=== PATIENT | female | born 1960 | race Caucasian/White ===

== ENCOUNTER 2019-07-25 09:37 | Inpatient (IN) | payer OTHER ==
[~2019-07-25] VITALS: Ht 160 cm; Wt 121.1 kg
[~2019-07-25 09:37] MED LIST: ASPIR 8181 MG; COZAAR100 MG; MEDROLPACK PO; MUCINEX1200 MG PO; VENTOLIN HFA18 GM IH; ZOLOFT50 MG
--- NOTE | 2019-07-25 09:56 | NUR ---
PACIENTE ALERTA Y ORIENTADA EN SUSAN FARHAN ESFERAS, REFIERE DOLOR AL ORINAR Y DOLOR EN LADO LT DEL COSTADO DESDE CAITLIN.
--- NOTE | 2019-07-25 11:26 | NUR ---
PTE ES EVALUADA POR DR CONNOR. SE ORIENTA A PACIENTE SOBRE ORDENES MEDICAS, REFIERE COMPRENDER. SE COLECTAN MUESTRAS DE LABORATORIO ORDENADAS Y ADMINSITRA MEDICAMENTO BAJO MEDIDAS ASEPTICAS. PENDIENTE A RESULTADOS DE LABORATORIO Y LECTURA DE CT SCAN PARA RE-EVALUACION MEDICA.
--- NOTE | 2019-07-25 13:47 | NUR ---
PACIENTE ES RE-EVALUADA POR DR CONNOR. SE ORIENTA A PACIENTE SOBRE ORDENES MEDICAS, REFIERE COMPRENDER. SE COLECTAN MUESTRAS DE LABORATORIO ORDENADAS. SE CANALIZA PACIENTE Y COLOCA IV FLUID ORDENADO; CANALIZACION JAE DE EDEMA Y/O ENROJECIMIENTO. PACIENTE EN ESPERA DE CONSULTA CON DR SAM DE JESUS.
--- NOTE | 2019-07-25 15:26 | NUR ---
SE RECIBE PTE ALERTA Y ORIENTADA X3 EN CELINA CON BARANDAS ELEVADAS AL MOMENTO. PTE SE OBSERVA CON 0.9NSS BAJANDO A 80ML/HR. PTE SE ORIENTA SOBRE ORDEN NPO. PTE EN ESPEREA DE CONSULTA CON MEDICINA INTERNA. PTE SE CONTINUA MONITORIANDO POR CAMBIOS.
== END 2019-07-29 13:57 | disposition home or self-care (01) | DRG 392 ==
LOC: ER 09:37 → MEDJ 16:31 → SEC-K 16:31 → MEDJ 17:26
PROVIDERS: ADMIT Internal Medicine
PROC: BW21ZZZ Computerized Tomography (CT Scan) of Abdomen and Pelvis (ICD-10-PCS; principal; 2019-07-25)
DX: K57.32 Diverticulitis of large intestine without perforation or abscess without bleeding (principal); E86.0 Dehydration; N21.0 Calculus in bladder; N20.0 Calculus of kidney; K43.9 Ventral hernia without obstruction or gangrene; J45.20 Mild intermittent asthma, uncomplicated; K76.0 Fatty (change of) liver, not elsewhere classified

== ENCOUNTER 2019-12-21 21:47 | Emergency (ER) | payer OTHER ==
[~2019-12-21] VITALS: Ht 160 cm; Wt 125.2 kg
[2019-12-21] MEDS ORDERED: RELAFEN DS1000 MG (21:56)
[2019-12-22] MEDS ORDERED: DICLOFENAC SODI75 MG PO (02:17)
== END 2019-12-22 02:27 | disposition home or self-care (01) ==
LOC: ER 21:47
DX: M62.838 Other muscle spasm (principal); M54.2 Cervicalgia

== ENCOUNTER 2020-01-23 18:44 | Inpatient (IN) | payer OTHER ==
[~2020-01-23] VITALS: Ht 160 cm; Wt 123.4 kg
[~2020-01-23 18:44] MED LIST changes: +DICLOFENAC SODI75 MG PO; +RELAFEN DS1000 MG
[2020-01-23] MEDS ORDERED: COZAAR25 MG (19:29)
== END 2020-02-08 14:37 | disposition home or self-care (01) | DRG 392 ==
LOC: ER 18:44 → SURH 01-24 08:07 → SEC-K 01-24 08:07 → SURH 01-24 10:25
PROVIDERS: ADMIT Surgery
PROC: BW21ZZZ Computerized Tomography (CT Scan) of Abdomen and Pelvis (ICD-10-PCS; 2020-01-24)
PROC: 05HY33Z Insertion of Infusion Device into Upper Vein, Percutaneous Approach (ICD-10-PCS; 2020-01-24)
PROC: BW21YZZ Computerized Tomography (CT Scan) of Abdomen and Pelvis using Other Contrast (ICD-10-PCS; 2020-01-28)
PROC: 0W9H30Z Drainage of Retroperitoneum with Drainage Device, Percutaneous Approach (ICD-10-PCS; principal; 2020-01-29)
PROC: 3E0336Z Introduction of Nutritional Substance into Peripheral Vein, Percutaneous Approach (ICD-10-PCS; 2020-01-30)
DX: K57.20 Diverticulitis of large intestine with perforation and abscess without bleeding (principal); N20.1 Calculus of ureter; E66.01 Morbid (severe) obesity due to excess calories; I10 Essential (primary) hypertension; R73.9 Hyperglycemia, unspecified

== ENCOUNTER 2020-05-11 09:27 | Outpatient (CLI) | payer OTHER ==
[~2020-05-11 09:27] MED LIST changes: +COZAAR25 MG
== END 2020-05-11 09:30 | disposition home or self-care (01) ==
LOC: TOM 09:27
DX: N20.0 Calculus of kidney (principal)

== ENCOUNTER 2020-07-03 10:55 | Day surgery (SDC) | payer OTHER | END 2020-07-03 16:24 | disposition home or self-care (01) | LOC: AMB-ENDOS 10:55 → ADM 13:15 → AMB-ENDOS 16:24 | PROVIDERS: ATTEND Colon & Rectal Surgery | DX: K63.5 Polyp of colon (principal); K64.1 Second degree hemorrhoids; Z20.828 Contact with and (suspected) exposure to other viral communicable diseases ==

== ENCOUNTER 2021-06-27 12:51 | Emergency (ER) | payer OTHER ==
[~2021-06-27] VITALS: Ht 160 cm; Wt 122.5 kg
[2021-06-27] MEDS ORDERED: SERTRALINE HCL50 MG PO (13:09)
[2021-06-27] MEDS ORDERED: OMEPRAZOLE20 MG PO (13:09)
[2021-06-27] MEDS ORDERED: HYDROCHLOROTHIA25 MG PO (13:10)
[2021-06-27] MEDS ORDERED: METFORMIN HCL500 M4 PO (13:10)
[2021-06-27] MEDS ORDERED: CYCLOBENZAPRINE10 MG PO (13:10)
[2021-06-27] MEDS ORDERED: AMLODIPINE BESYL5 MG PO (13:10)
== END 2021-06-27 17:46 | disposition home or self-care (01) ==
LOC: ER 12:51
DX: S80.01XA Contusion of right knee, initial encounter (principal); S40.011A Contusion of right shoulder, initial encounter; W18.39XA Other fall on same level, initial encounter; Y93.89 Activity, other specified; Y92.481 Parking lot as the place of occurrence of the external cause; Y99.8 Other external cause status

== ENCOUNTER 2022-12-21 14:57 | Inpatient (IN) | payer OTHER ==
[~2022-12-21] VITALS: Ht 152.4 cm; Wt 125.6 kg
[~2022-12-21 14:57] MED LIST changes: +AMLODIPINE BESYL5 MG PO; +CYCLOBENZAPRINE10 MG PO; +HYDROCHLOROTHIA25 MG PO; +METFORMIN HCL500 M4 PO; +OMEPRAZOLE20 MG PO; +SERTRALINE HCL50 MG PO
--- NOTE | 2022-12-21 15:22 | NUR ---
PTE ALERTA Y ORIENTADA X3 REFIERE TENER DOLOR EN LADO IZQUIEDO DEL COSTADO. EN ADDICION REFIERE TENER DIARREAS DESDE CAITLIN POR LA NOCHE Y EL NELDA DE HOY A PRESENTADO 7 EVACUACIONES LIQUIDAS.
--- NOTE | 2022-12-21 17:38 | NUR ---
SE EDUCA A PTE SOBRE TX MEDICO ESTA REFIERE ENTENDER. SE HERMINIA MUESTRAS DE LABORATORIO UTILIZANDO MEDIDAS ASEPTICAS. SE COLOCA H/L A PTE Y SE ADMINISTRAN MEDICAMENTOS LOS CUALES TOLERA.
== END 2022-12-28 22:52 | disposition home or self-care (01) | DRG 392 ==
LOC: ER 14:57 → MEDJ 20:25 → MEDI 12-28 10:07
PROVIDERS: ADMIT Internal Medicine; ATTEND Internal Medicine
PROC: BW21ZZZ Computerized Tomography (CT Scan) of Abdomen and Pelvis (ICD-10-PCS; principal; 2022-12-21)
DX: K57.32 Diverticulitis of large intestine without perforation or abscess without bleeding (principal); K21.9 Gastro-esophageal reflux disease without esophagitis; K43.9 Ventral hernia without obstruction or gangrene; N20.0 Calculus of kidney; I10 Essential (primary) hypertension; E66.01 Morbid (severe) obesity due to excess calories; E11.9 Type 2 diabetes mellitus without complications; Z79.4 Long term (current) use of insulin; Z20.822 Contact with and (suspected) exposure to COVID-19

== ENCOUNTER 2024-01-14 14:33 | Emergency (ER) | payer OTHER ==
[~2024-01-14] VITALS: Ht 157.5 cm; Wt 118.8 kg
[2024-01-14] MEDS ORDERED: ZITHROMAX200 MG PO (14:47)
[2024-01-14] MEDS ORDERED: 0.9 % SODIUM CHLORIDE 1,000 ML IV STA (15:20)
[2024-01-14 15:44] LABS: HEMATOCRIT 41.5 % (36.0-45.00); HEMOGLOBIN 13.9 g/dL (12.0-15.00); MEAN CELL VOLUME 83.1 fL (80.00-100.00); MEAN CORPUSCULAR HEMOGLOBIN 27.8 pg (27.00-32.0); MEAN CORPUSCULAR HGB CONC 33.5 g/dl (32.0-36.0); PLATELET COUNT 260 K/uL (150-450); RED BLOOD COUNT 4.99 M/uL (4.00-6.00); RED CELL DISTRIBUTION WIDTH 15.1 % (11.5-14.5)
[2024-01-14 16:19] LABS: INR 1.14; PARTIAL THROMBOPLASTIN TIME 33.9 SECONDS (22.0-34.0); PROTHROMBIN TIME 11.9 SECONDS (9.0-11.5)
[2024-01-14 16:30] LABS: CALCIUM 9.3 mg/dL (8.5-10.1); CREATININE SERUM 0.69 mg/dL (0.55-1.02); GFR 86.49; POTASSIUM 3.58 mEq/L (3.5-5.1)
[2024-01-14 17:06] LABS: PH,URINE 6.5 (5.0-8.0); URINE APPEARANCE Clear; URINE BILIRRUBIN Negative (NEGATIVE); URINE BLOOD Negative; URINE COLOR Yellow; URINE GLUCOSE Negative (NEGATIVE); URINE LEUKOCYTE Trace; URINE NITRATE Negative; URINE PROTEIN Negative (NEGATIVE)
[2024-01-14 17:09] LABS: URINE BACTERIA 2631.9 uL (0.0-1933); URINE EPITHELIAL CELLS 47.7 uL (0.0-38.8); URINE WBC 22.2 uL (0.0-23.2)
[2024-01-14] MEDS ORDERED: CIPROFLOXACIN IN 5 % DEXTROSE 400 MG/200 ML PIGGYBAG IV ONE (20:15)
== END 2024-01-14 22:16 | disposition home or self-care (01) ==
LOC: ER 14:33
PROVIDERS: General Practice
DX: K57.32 Diverticulitis of large intestine without perforation or abscess without bleeding (principal); K76.0 Fatty (change of) liver, not elsewhere classified; N20.0 Calculus of kidney; K43.9 Ventral hernia without obstruction or gangrene; E11.9 Type 2 diabetes mellitus without complications; Z79.84 Long term (current) use of oral hypoglycemic drugs; I10 Essential (primary) hypertension; Z91.013 Allergy to seafood; Z88.8 Allergy status to other drugs, medicaments and biological substances; Z85.038 Personal history of other malignant neoplasm of large intestine
CPT/HCPCS: 36415; 74176; 96365; 96366; 99284; J0744; J3490

== ENCOUNTER 2024-07-23 05:06 | Emergency (ER) | payer OTHER ==
[~2024-07-23] VITALS: Ht 152.4 cm; Wt 119.3 kg
[~2024-07-23 05:06] MED LIST changes: +ZITHROMAX200 MG PO
[2024-07-23] MEDS ORDERED: RINGERS SOLUTION,LACTATED 1,000 ML IV STA (05:25)
[2024-07-23] MEDS ORDERED: MEPERIDINE HCL/PF 50 MG/ML VIAL IM STA (05:26)
[2024-07-23] MEDS ORDERED: HYOSCYAMINE SULFATE 0.125 MG TAB.SUBL SL STA (05:26)
[2024-07-23] MEDS ORDERED: KETOROLAC TROMETHAMINE 30 MG VIAL IV STA (05:26)
[2024-07-23] MEDS ORDERED: PROMETHAZINE HCL 50 MG/ML AMPUL IM STA (05:27)
[2024-07-23] MEDS ORDERED: PROMETHAZINE HCL 50 MG/ML AMPUL IM ONE (05:31)
[2024-07-23] MEDS ORDERED: KETOROLAC TROMETHAMINE 30 MG VIAL ONE (05:31)
[2024-07-23] MEDS ORDERED: HYOSCYAMINE SULFATE 0.125 MG TAB.SUBL ONE (05:31)
[2024-07-23 06:53] LABS: HEMATOCRIT 44.7 % (36.0-45.00); HEMOGLOBIN 14.9 g/dL (12.0-15.00); MEAN CELL VOLUME 83.5 fL (80.00-100.00); MEAN CORPUSCULAR HEMOGLOBIN 27.8 pg (27.00-32.0); MEAN CORPUSCULAR HGB CONC 33.3 g/dl (32.0-36.0); PLATELET COUNT 278 K/uL (150-450); RED BLOOD COUNT 5.35 M/uL (4.00-6.00); RED CELL DISTRIBUTION WIDTH 15.2 % (11.5-14.5)
[2024-07-23] MEDS ORDERED: OxyCODONE HCL/APAP UD (PERCOCET) PO STA (07:55)
[2024-07-23 07:59] LABS: URINE APPEARANCE Clear; URINE BILIRRUBIN Negative (NEGATIVE); URINE BLOOD Small; URINE COLOR Yellow; URINE GLUCOSE Negative (NEGATIVE); URINE KETONE Negative (NEGATIVE); URINE LEUKOCYTE Trace; URINE NITRATE Negative; URINE PROTEIN Trace (NEGATIVE); URINE UROBILINOGEN 0.2 E.U./dl
[2024-07-23 08:03] LABS: URINE BACTERIA 755.9 uL (0.0-1933); URINE EPITHELIAL CELLS 19.3 uL (0.0-38.8); URINE RBC 55.1 uL (0.0-20.8); URINE WBC 48.2 uL (0.0-23.2)
[2024-07-23 08:12] LABS: CALCIUM 9.4 mg/dL (8.5-10.1); CREATININE SERUM 0.93 mg/dL (0.55-1.02); GFR 61.09; POTASSIUM 4.29 mEq/L (3.5-5.1)
[2024-07-23] MEDS ORDERED: CEFTRIAXONE SODIUM 1,000 MG VIAL ONE (08:44)
[2024-07-23] MEDS ORDERED: CEFTRIAXONE SODIUM 2,000 MG VIAL IV ONE (08:45)
[2024-07-23] MEDS ORDERED: CEFTRIAXONE SODIUM 1,000 MG VIAL IV ONE (08:45)
== END 2024-07-23 09:21 | disposition home or self-care (01) ==
LOC: ER 05:07
DX: N20.1 Calculus of ureter (principal); R10.9 Unspecified abdominal pain; Z87.442 Personal history of urinary calculi; Z91.013 Allergy to seafood; Z88.8 Allergy status to other drugs, medicaments and biological substances; N20.0 Calculus of kidney; K57.30 Diverticulosis of large intestine without perforation or abscess without bleeding
CPT/HCPCS: 36415; 74176; 96365; 96372; 99284; J0696; J1885; J2250; J3490

== ENCOUNTER 2024-10-29 11:48 | Inpatient (IN) | payer OTHER ==
[~2024-10-29] VITALS: Ht 152.4 cm; Wt 117.9 kg
--- NOTE | 2024-10-29 12:22 | NUR ---
SE RECIBE PTE ALERTA Y ORIENTADA X3 EN AMBULANCIA EN COMPANAI DE PARAMEDICOS Y FAMILIAR. LA MISMA REIFERE DEOLOR ABDOMINAL Y VOMITOS DESDE LAS 5AM. SE NOTIFICA B/P 170/[address] CEBALLOS. SE MIDEN S/V Y SE UBICA.
[2024-10-29] MEDS ORDERED: FAMOtidine 10 MG/ML (4ML VIAL) IV ONE (13:00)
[2024-10-29] MEDS ORDERED: 0.9 % SODIUM CHLORIDE 1,000 ML IV ONE (13:00)
[2024-10-29] MEDS ORDERED: ONDANSETRON HCL 2 MG/ML VIAL IV ONE (13:00)
[2024-10-29] MEDS ORDERED: CEFTRIAXONE SODIUM 1,000 MG VIAL IV ONE (13:00)
[2024-10-29] MEDS ORDERED: TAMSULOSIN HCL 0.4 MG CAP PO ONE (13:15)
[2024-10-29] MEDS ORDERED: METHYLPREDNISOLONE SOD SUCC 40 MG VIAL IV ONE (14:15)
[2024-10-29] MEDS ORDERED: DIPHENHYDRAMINE HCL 50 MG/ML VIAL 1ML IV ONE (14:15)
--- NOTE | 2024-10-29 14:17 | NUR ---
SE ORIENTA A PACIENTE SOBRE TX MEDICO, REFIERE ENTENDER. SE REALIZAN MUESTRAS DE LABORATORIO BAJO MEDIDAS ASEPTICAS. SE ADMINISTRAN MEDICAMENTOS CUCO ORDEN MEDICA. SE COORDINA CT. PACIENTE MANEJADA POR .
[2024-10-29 14:55] LABS: ALBUMIN 3.6 gm/dL (3.4-5.0); BILIRUBIN TOTAL 0.88 mg/dL (0.3-1.2); CALCIUM 9.3 mg/dL (8.5-10.1); CREATININE SERUM 1.01 mg/dL (0.55-1.02); GFR 55.54; GLOBULINA 4.1 G/DL (2.4-3.5); POTASSIUM 4.9 mEq/L (3.5-5.1); TOTAL PROTEIN 7.7 gm/dL (6.4-8.2)
[2024-10-29 14:58] LABS: HEMATOCRIT 43.6 % (36.0-45.00); HEMOGLOBIN 14.7 g/dL (12.0-15.00); MEAN CELL VOLUME 81.5 fL (80.00-100.00); MEAN CORPUSCULAR HEMOGLOBIN 27.4 pg (27.00-32.0); MEAN CORPUSCULAR HGB CONC 33.7 g/dl (32.0-36.0); PLATELET COUNT 248 K/uL (150-450); RED BLOOD COUNT 5.35 M/uL (4.00-6.00); RED CELL DISTRIBUTION WIDTH 14.9 % (11.5-14.5)
[2024-10-29 15:24] LABS: PH,URINE 5.5 (5.0-8.0); URINE APPEARANCE Clear; URINE BILIRRUBIN Negative (NEGATIVE); URINE BLOOD NHT; URINE COLOR Yellow; URINE GLUCOSE Negative (NEGATIVE); URINE KETONE Negative (NEGATIVE); URINE LEUKOCYTE Small; URINE NITRATE Positive; URINE PROTEIN Trace (NEGATIVE); URINE UROBILINOGEN 0.2 E.U./dl
[2024-10-29 15:29] LABS: URINE EPITHELIAL CELLS 46.9 uL (0.0-38.8); URINE WBC 82.8 uL (0.0-23.2)
[2024-10-29 15:38] LABS: URINE BACTERIA > 9821.5 uL (0.0-1933); URINE CAST 0.45 uL (0.0-1.40)
[2024-10-29] MEDS ORDERED: CEFTRIAXONE SODIUM 2,000 MG in 0.9 % SODIUM CHLORIDE 100 ML IV SCH (20:50)
[2024-10-29] MEDS ORDERED: KETOROLAC TROMETHAMINE 15 MG VIAL IU SCH (21:00)
[2024-10-29] MEDS ORDERED: ACETAMINOPHEN 500 MG GEL..CAP PO PRN (21:00)
[2024-10-29] MEDS ORDERED: INSULIN LISPRO 1,000 UNIT/10 ML UNITS SUBCUTANEO PRN (21:00)
[2024-10-29] MEDS ORDERED: DEXTROSE 50 % IN WATER 0.5 G/ML DISP.SYRIN IV PRN (21:00)
[2024-10-29] MEDS ORDERED: ONDANSETRON HCL 4 MG in 0.9 % SODIUM CHLORIDE 50 ML IV PRN (21:00)
[2024-10-29] MEDS ORDERED: 0.9 % SODIUM CHLORIDE 1,000 ML IV SCH (21:00)
[2024-10-30 00:42] LABS: INR 1.47; PARTIAL THROMBOPLASTIN TIME 35.3 SECONDS (22.0-34.0)
[2024-10-30 01:08] LABS: PROTHROMBIN TIME 15.6 SECONDS (9.0-11.5)
[2024-10-30 06:29] VITALS: BP 97/56; O2SAT 96
[2024-10-30 08:05] VITALS: BP 101/59; O2SAT 88
[2024-10-30] MEDS ORDERED: AMLODIPINE BESYLATE 5 MG TABLET PO SCH (09:00)
[2024-10-30] MEDS ORDERED: LOSARTAN POTASSIUM 25 MG TABLET PO SCH (09:00)
[2024-10-30] MEDS ORDERED: TAMSULOSIN HCL 0.4 MG CAP PO SCH (09:00)
[2024-10-30] MEDS ORDERED: SERTRALINE HCL 50 MG TABLET PO SCH (09:00)
[2024-10-30] MEDS ORDERED: KETOROLAC TROMETHAMINE 30 MG VIAL IV SCH (13:00)
[2024-10-30 16:00] VITALS: BP 89/50; O2SAT 91
[2024-10-30] MEDS ORDERED: AMIKACIN SULFATE 250 MG/ML - 1GM VIAL IV SCH (17:00)
[2024-10-30] MEDS ORDERED: ORPHENADRINE CITRATE 30 MG/ML AMPUL IV SCH (22:53)
[2024-10-30] MEDS ORDERED: 0.9 % SODIUM CHLORIDE 500 ML IV SCH (23:15)
[2024-10-31 03:30] VITALS: BP 100/58; O2SAT 95
[2024-10-31 03:39] LABS: HEMATOCRIT 38.1 % (36.0-45.00); HEMOGLOBIN 12.8 g/dL (12.0-15.00); MEAN CELL VOLUME 81.8 fL (80.00-100.00); MEAN CORPUSCULAR HEMOGLOBIN 27.4 pg (27.00-32.0); MEAN CORPUSCULAR HGB CONC 33.5 g/dl (32.0-36.0); RED BLOOD COUNT 4.66 M/uL (4.00-6.00); RED CELL DISTRIBUTION WIDTH 15.8 % (11.5-14.5)
[2024-10-31 04:04] LABS: ALBUMIN 2.6 gm/dL (3.4-5.0); BILIRUBIN TOTAL 0.38 mg/dL (0.3-1.2); CALCIUM 7.7 mg/dL (8.5-10.1); GLOBULINA 3.2 G/DL (2.4-3.5); PHOSPHOROUS 6.5 mg/dL (2.5-4.9); POTASSIUM 4.52 mEq/L (3.5-5.1); TOTAL PROTEIN 5.8 gm/dL (6.4-8.2)
[2024-10-31 04:54] LABS: C-REACTIVE PROTEIN 36.3 MG/DL (0.00-0.29); GFR 11.51
[2024-10-31 05:14] LABS: PLATELET COUNT 84 K/uL (150-450)
[2024-10-31 06:37] LABS: CREATININE SERUM 3.95 mg/dL (0.55-1.02)
[2024-10-31 06:39] LABS: MAGNESIUM 1.3 mg/dL (1.8-2.4)
[2024-10-31] MEDS ORDERED: MAGNESIUM SULFATE IN WATER 2 GM/50 ML PIGGYBAG IV NR (11:00)
[2024-10-31 12:00] VITALS: BP 126/63; O2SAT 97
[2024-10-31] MEDS ORDERED: MEROPENEM 500 MG/VIAL VIAL IV SCH (12:11)
[2024-10-31 14:52] LABS: URINE APPEARANCE Turbid; URINE BILIRRUBIN Small (NEGATIVE); URINE BLOOD Large; URINE COLOR Dark Yellow; URINE KETONE 15 (NEGATIVE); URINE LEUKOCYTE Large; URINE NITRATE Negative; URINE UROBILINOGEN 0.2 E.U./dl
[2024-10-31 14:56] LABS: URINE BACTERIA 6807.8 uL (0.0-1933); URINE EPITHELIAL CELLS 80.1 uL (0.0-38.8); URINE RBC 32.2 uL (0.0-20.8)
[2024-10-31] MEDS ORDERED: DEXTROSE 5 % IN WATER 1,000 ML IV SCH (15:30)
[2024-10-31 15:41] LABS: URINE CAST > 21.83 uL (0.0-1.40); URINE GLUCOSE 100 MG/DL (NEGATIVE); URINE PROTEIN 300 (NEGATIVE); URINE WBC > 5548.3 uL (0.0-23.2)
[2024-10-31 16:21] VITALS: BP 90/70; O2SAT 95
[2024-10-31 20:11] LABS: ABG PH 7.292 (7.35-7.45); ABG PO2 95.9 mmHg (80-100); ABG pCO2 38.5 mmHg (35-45); SaO2 96.1 %
[2024-10-31 20:12] LABS: BASE EXCESS -7.7 mmol/l; BICARBONATE 18.2 mmol/l (23-25); Tco2 19.3 mmol/l; allen test SATISFACTORY; o2 36 %; puncture site RADIAL RIGHT
[2024-10-31] MEDS ORDERED: CITRIC ACID/SODIUM CITRATE 30 ML BLIST.PACK PO SCH (21:00)
[2024-11-01 00:16] VITALS: BP 121/67; O2SAT 95
[2024-11-01] MEDS ORDERED: SODIUM CHLORIDE 0.45 % 1,000 ML IV SCH (00:30)
[2024-11-01 06:35] LABS: HEMATOCRIT 36.5 % (36.0-45.00); HEMOGLOBIN 11.7 g/dL (12.0-15.00); MEAN CELL VOLUME 83.7 fL (80.00-100.00); MEAN CORPUSCULAR HEMOGLOBIN 26.9 pg (27.00-32.0); MEAN CORPUSCULAR HGB CONC 32.2 g/dl (32.0-36.0); RED BLOOD COUNT 4.36 M/uL (4.00-6.00); RED CELL DISTRIBUTION WIDTH 16.2 % (11.5-14.5)
[2024-11-01 07:22] LABS: ALBUMIN 2.5 gm/dL (3.4-5.0); BILIRUBIN TOTAL 0.35 mg/dL (0.3-1.2); CALCIUM 7.4 mg/dL (8.5-10.1); CREATININE SERUM 2.47 mg/dL (0.55-1.02); GFR 19.79; GLOBULINA 3.4 G/DL (2.4-3.5); MAGNESIUM 2.4 mg/dL (1.8-2.4); PHOSPHOROUS 5.9 mg/dL (2.5-4.9); TOTAL PROTEIN 5.9 gm/dL (6.4-8.2)
[2024-11-01 07:23] LABS: POTASSIUM 5.26 mEq/L (3.5-5.1)
[2024-11-01 08:00] LABS: PLATELET COUNT 87 K/uL (150-450)
[2024-11-01 10:06] VITALS: BP 120/82; O2SAT 97
[2024-11-01 16:25] VITALS: BP 136/81; O2SAT 96
[2024-11-02 00:54] VITALS: BP 146/83; O2SAT 94
[2024-11-02 08:00] VITALS: BP 149/78; O2SAT 97
[2024-11-02 08:32] LABS: URINE APPEARANCE Cloudy; URINE BILIRRUBIN Negative (NEGATIVE); URINE BLOOD Large; URINE COLOR Orange; URINE GLUCOSE Negative (NEGATIVE); URINE KETONE 15 (NEGATIVE); URINE LEUKOCYTE Large; URINE NITRATE Negative; URINE PROTEIN 30 (NEGATIVE); URINE UROBILINOGEN 0.2 E.U./dl
[2024-11-02 08:33] LABS: ALBUMIN 2.5 gm/dL (3.4-5.0); BILIRUBIN TOTAL 0.61 mg/dL (0.3-1.2); CALCIUM 8.6 mg/dL (8.5-10.1); CREATININE SERUM 0.98 mg/dL (0.55-1.02); GFR 57.5; GLOBULINA 3.5 G/DL (2.4-3.5); MAGNESIUM 2.8 mg/dL (1.8-2.4); PHOSPHOROUS 3.5 mg/dL (2.5-4.9); POTASSIUM 5.34 mEq/L (3.5-5.1)
[2024-11-02 08:34] LABS: URINE BACTERIA 1184.8 uL (0.0-1933); URINE CAST 12.74 uL (0.0-1.40); URINE EPITHELIAL CELLS 110.5 uL (0.0-38.8); URINE WBC 1255.4 uL (0.0-23.2)
[2024-11-02 08:35] LABS: ALBUMIN 2.5 gm/dL (3.4-5.0); C-REACTIVE PROTEIN 15.2 MG/DL (0.00-0.29); CALCIUM 8.6 mg/dL (8.5-10.1); CREATININE SERUM 0.93 mg/dL (0.55-1.02); GFR 61.09; PHOSPHOROUS 3.8 mg/dL (2.5-4.9); POTASSIUM 4.86 mEq/L (3.5-5.1)
[2024-11-02 10:23] LABS: HEMOGLOBIN 12.5 g/dL (12.0-15.00); MEAN CELL VOLUME 81.3 fL (80.00-100.00); MEAN CORPUSCULAR HEMOGLOBIN 27.4 pg (27.00-32.0); MEAN CORPUSCULAR HGB CONC 33.7 g/dl (32.0-36.0); RED BLOOD COUNT 4.55 M/uL (4.00-6.00); RED CELL DISTRIBUTION WIDTH 16.4 % (11.5-14.5)
[2024-11-02 10:37] LABS: URINE CRYSTALS MANY /HPF; URINE RBC > 10558.9 uL (0.0-20.8)
[2024-11-02 10:38] LABS: URINE YEAST NEGATIVE /hpf
[2024-11-02 11:12] LABS: PLATELET COUNT 109 K/uL (150-450)
[2024-11-02] MEDS ORDERED: FUROsemide 20 MG/2 ML VIAL IV SCH (17:41)
[2024-11-02] MEDS ORDERED: MEROPENEM 500 MG/VIAL VIAL IV SCH (18:00)
[2024-11-03] VITALS: BP 173/85; O2SAT 95
[2024-11-03 08:00] VITALS: BP 180/85; O2SAT 95
[2024-11-03 15:40] VITALS: BP 140/85; O2SAT 99
[2024-11-03] MEDS ORDERED: NIFEDIPINE 30 MG TAB.SA.OSM PO SCH (21:00)
[2024-11-04] VITALS: BP 144/69; O2SAT 97
[2024-11-04 07:31] LABS: HEMATOCRIT 38.9 % (36.0-45.00); HEMOGLOBIN 12.9 g/dL (12.0-15.00); MEAN CELL VOLUME 81.1 fL (80.00-100.00); MEAN CORPUSCULAR HEMOGLOBIN 26.9 pg (27.00-32.0); MEAN CORPUSCULAR HGB CONC 33.2 g/dl (32.0-36.0); RED BLOOD COUNT 4.79 M/uL (4.00-6.00); RED CELL DISTRIBUTION WIDTH 15.4 % (11.5-14.5)
[2024-11-04 08:40] LABS: PLATELET COUNT 129 K/uL (150-450)
[2024-11-04 08:58] VITALS: BP 118/78; O2SAT 95
[2024-11-04 12:49] LABS: INR 1.24; PARTIAL THROMBOPLASTIN TIME 26.9 SECONDS (22.0-34.0); PROTHROMBIN TIME 13.3 SECONDS (9.0-11.5)
[2024-11-04] MEDS ORDERED: SODIUM CHLORIDE 0.45 % 1,000 ML IV SCH (15:45)
[2024-11-04 17:51] VITALS: BP 116/75; O2SAT 97
[2024-11-05 02:03] VITALS: BP 139/81; O2SAT 97
[2024-11-05 06:51] LABS: HEMATOCRIT 37.2 % (36.0-45.00); HEMOGLOBIN 12.5 g/dL (12.0-15.00); MEAN CELL VOLUME 81.1 fL (80.00-100.00); MEAN CORPUSCULAR HEMOGLOBIN 27.2 pg (27.00-32.0); MEAN CORPUSCULAR HGB CONC 33.5 g/dl (32.0-36.0); PLATELET COUNT 174 K/uL (150-450); RED BLOOD COUNT 4.58 M/uL (4.00-6.00); RED CELL DISTRIBUTION WIDTH 15.7 % (11.5-14.5)
[2024-11-05 07:14] LABS: ALBUMIN 2.4 gm/dL (3.4-5.0); BILIRUBIN TOTAL 0.51 mg/dL (0.3-1.2); CALCIUM 8.6 mg/dL (8.5-10.1); CREATININE SERUM 0.43 mg/dL (0.55-1.02); GFR 148.78; MAGNESIUM 1.6 mg/dL (1.8-2.4); POTASSIUM 3.52 mEq/L (3.5-5.1); TOTAL PROTEIN 5.4 gm/dL (6.4-8.2)
[2024-11-05 07:15] LABS: C-REACTIVE PROTEIN 6.36 MG/DL (0.00-0.29)
[2024-11-05 08:00] VITALS: BP 114/70; O2SAT 87
[2024-11-05] MEDS ORDERED: MAGNESIUM SULFATE/D5W 100 ML IV NR (17:30)
[2024-11-05] MEDS ORDERED: ENOXAPARIN SODIUM 40 MG/0.4 ML SYRINGE SUBCUTANEO SCH (17:44)
[2024-11-05 18:25] VITALS: BP 143/68; O2SAT 94
[2024-11-05 18:26] VITALS: BP 143/68; O2SAT 94
[2024-11-05] MEDS ORDERED: FAMOTIDINE/PF 20 MG in 0.9 % SODIUM CHLORIDE 8 ML IV PUSH SCH (21:00)
[2024-11-06 00:10] VITALS: BP 110/68; O2SAT 98
[2024-11-06 08:00] VITALS: BP 152/81; O2SAT 96
[2024-11-06 16:00] VITALS: BP 140/82; O2SAT 94
[2024-11-07 00:47] VITALS: BP 134/80; O2SAT 95
[2024-11-07 07:05] LABS: HEMOGLOBIN 12.6 g/dL (12.0-15.00); MEAN CELL VOLUME 81.6 fL (80.00-100.00); MEAN CORPUSCULAR HEMOGLOBIN 27.1 pg (27.00-32.0); MEAN CORPUSCULAR HGB CONC 33.2 g/dl (32.0-36.0); PLATELET COUNT 252 K/uL (150-450); RED BLOOD COUNT 4.66 M/uL (4.00-6.00); RED CELL DISTRIBUTION WIDTH 15.6 % (11.5-14.5)
[2024-11-07 07:51] LABS: ALBUMIN 2.6 gm/dL (3.4-5.0); BILIRUBIN TOTAL 0.47 mg/dL (0.3-1.2); CALCIUM 8.3 mg/dL (8.5-10.1); CREATININE SERUM 0.51 mg/dL (0.55-1.02); GFR 122.19; GLOBULINA 3.4 G/DL (2.4-3.5); MAGNESIUM 1.6 mg/dL (1.8-2.4); PHOSPHOROUS 3.5 mg/dL (2.5-4.9); POTASSIUM 3.87 mEq/L (3.5-5.1)
[2024-11-07 08:03] VITALS: BP 116/66; O2SAT 95
[2024-11-07] MEDS ORDERED: MAGNESIUM SULFATE/D5W 100 ML IV NR (10:00)
[2024-11-07 16:00] VITALS: BP 160/74; O2SAT 100
[2024-11-07 23:58] VITALS: BP 130/78; O2SAT 97
[2024-11-08 11:13] VITALS: BP 141/87; O2SAT 96
[2024-11-08 16:00] VITALS: BP 104/72; O2SAT 98
== END 2024-11-09 07:05 | disposition home or self-care (01) | DRG 872 ==
LOC: ER 11:48 → SURG 22:21 → SEC-K 22:21 → SURH 22:21 → SURG 10-30 01:14 → SURH 10-30 01:16 → SURG 10-30 06:28
PROVIDERS: General Practice; Internal Medicine; Internal Medicine Infectious Disease; Internal Medicine Nephrology; Urology; ADMIT Internal Medicine; ATTEND Internal Medicine
PROC: BW21YZZ Computerized Tomography (CT Scan) of Abdomen and Pelvis using Other Contrast (ICD-10-PCS; 2024-10-29)
PROC: 0T764DZ Dilation of Right Ureter with Intraluminal Device, Percutaneous Endoscopic Approach (ICD-10-PCS; 2024-10-30)
PROC: 0TJB8ZZ Inspection of Bladder, Via Natural or Artificial Opening Endoscopic (ICD-10-PCS; principal; 2024-10-30 23:00)
PROC: BT4JZZZ Ultrasonography of Kidneys and Bladder (ICD-10-PCS; 2024-11-01)
PROC: B24BYZZ Ultrasonography of Heart with Aorta using Other Contrast (ICD-10-PCS; 2024-11-04)
DX: A41.9 Sepsis, unspecified organism (principal); N39.0 Urinary tract infection, site not specified; N17.9 Acute kidney failure, unspecified; R65.10 Systemic inflammatory response syndrome (SIRS) of non-infectious origin without acute organ dysfunction; I10 Essential (primary) hypertension; E66.01 Morbid (severe) obesity due to excess calories; E11.9 Type 2 diabetes mellitus without complications; Z79.4 Long term (current) use of insulin; D72.829 Elevated white blood cell count, unspecified

== ENCOUNTER 2024-12-31 13:16 | Outpatient (CLI) | payer OTHER | END 2024-12-31 13:21 | disposition home or self-care (01) | LOC: RAD 13:16 | PROVIDERS: ATTEND Urology | DX: N20.1 Calculus of ureter (principal) ==

== ENCOUNTER 2025-02-25 05:38 | Day surgery (SDC) | payer OTHER ==
[2025-02-21 09:55] LABS: HEMATOCRIT 40.5 % (36.0-45.00); HEMOGLOBIN 13.4 g/dL (12.0-15.00); MEAN CELL VOLUME 80.5 fL (80.00-100.00); MEAN CORPUSCULAR HEMOGLOBIN 26.6 pg (27.00-32.0); MEAN CORPUSCULAR HGB CONC 33.1 g/dl (32.0-36.0); PLATELET COUNT 244 K/uL (150-450); RED BLOOD COUNT 5.03 M/uL (4.00-6.00); RED CELL DISTRIBUTION WIDTH 15.8 % (11.5-14.5)
[2025-02-21 10:23] LABS: PH,URINE 5.5 (5.0-8.0); URINE APPEARANCE Clear; URINE BILIRRUBIN Negative (NEGATIVE); URINE BLOOD Moderate; URINE COLOR Yellow; URINE GLUCOSE Negative (NEGATIVE); URINE KETONE Negative (NEGATIVE); URINE LEUKOCYTE Small; URINE NITRATE Negative; URINE PROTEIN 30 (NEGATIVE); URINE UROBILINOGEN 0.2 E.U./dl
[2025-02-21 10:25] LABS: URINE EPITHELIAL CELLS 22.7 uL (0.0-38.8); URINE RBC 656.8 uL (0.0-20.8); URINE WBC 74.3 uL (0.0-23.2)
[2025-02-21 10:26] LABS: ALBUMIN 3.3 gm/dL (3.4-5.0); BILIRUBIN TOTAL 0.44 mg/dL (0.3-1.2); CALCIUM 9.2 mg/dL (8.5-10.1); CREATININE SERUM 0.69 mg/dL (0.55-1.02); GFR 86.21; GLOBULINA 3.5 G/DL (2.4-3.5); POTASSIUM 4.07 mEq/L (3.5-5.1); TOTAL PROTEIN 6.8 gm/dL (6.4-8.2)
[2025-02-21 10:39] LABS: INR 1.1; PARTIAL THROMBOPLASTIN TIME 29.2 SECONDS (22.0-34.0); PROTHROMBIN TIME 11.9 SECONDS (9.0-11.5)
[2025-02-21 10:40] VITALS: BP 126/81
[~2025-02-25] VITALS: Ht 152.4 cm; Wt 120.2 kg
[2025-02-25] MEDS ORDERED: CEFAZOLIN SODIUM 1,000 MG VIAL IV ONE (07:30)
[2025-02-25] MEDS ORDERED: MORPHINE SULFATE 4 MG/ML VIAL IV ONE ×2 (10:45→11:30)
== END 2025-02-25 13:20 | disposition home or self-care (01) ==
LOC: CIR.AMB 05:38
PROVIDERS: ATTEND Orthopaedic Surgery
DX: S42.321A Displaced transverse fracture of shaft of humerus, right arm, initial encounter for closed fracture (principal); I10 Essential (primary) hypertension; E10.9 Type 1 diabetes mellitus without complications; J45.909 Unspecified asthma, uncomplicated; Z88.1 Allergy status to other antibiotic agents; Z91.013 Allergy to seafood
CPT/HCPCS: 24505; L8699

== ENCOUNTER → 2025-03-18 06:14 | Outpatient (CLI) | payer OTHER | END | disposition home or self-care (01) | LOC: RAD 06:14 | PROVIDERS: ATTEND Orthopaedic Surgery | DX: S42.321D Displaced transverse fracture of shaft of humerus, right arm, subsequent encounter for fracture with routine healing (principal); X58.XXXD Exposure to other specified factors, subsequent encounter ==

== ENCOUNTER 2025-04-07 10:41 | Outpatient (CLI) | payer OTHER | END 2025-04-07 12:16 | disposition home or self-care (01) | LOC: EKG 10:41 | PROVIDERS: ATTEND Urology | DX: N20.0 Calculus of kidney (principal); N20.1 Calculus of ureter ==

== ENCOUNTER 2025-05-22 09:16 | Outpatient (CLI) | payer OTHER | END 2025-05-22 09:19 | disposition home or self-care (01) | LOC: RAD 09:16 | PROVIDERS: ATTEND Urology | DX: N20.0 Calculus of kidney (principal) ==